=== PATIENT | male | born 1995 | race African-American/Black ===

== ENCOUNTER 2017-10-28 17:20 | Emergency (ER) | payer MEDICAID ==
[~2017-10-28] VITALS: Ht 162.6 cm; Wt 113.0 kg
[2017-10-28 18:07] VITALS: BP 132/61
== END 2017-10-28 21:45 | disposition home or self-care (01) ==
LOC: ER 17:20
DX: M60.9 Myositis, unspecified (principal); M54.5 Low back pain; M54.2 Cervicalgia; M25.512 Pain in left shoulder; V89.2XXA Person injured in unspecified motor-vehicle accident, traffic, initial encounter; Y93.89 Activity, other specified; Y99.8 Other external cause status; Y92.410 Unspecified street and highway as the place of occurrence of the external cause
CPT/HCPCS: 72100; 99284

== ENCOUNTER 2017-12-02 11:10 | Emergency (ER) | payer MEDICAID ==
[~2017-12-02] VITALS: Ht 175.3 cm; Wt 110.0 kg
[2017-12-02 11:17] VITALS: BP 135/96
== END 2017-12-02 13:37 | disposition left against medical advice (07) ==
LOC: ER 11:22
DX: Z00.8 Encounter for other general examination (principal); Z53.21 Procedure and treatment not carried out due to patient leaving prior to being seen by health care provider